=== PATIENT | male | born 1995 | race Caucasian/White ===

== ENCOUNTER 2024-01-11 20:45 | Emergency (ER) | payer MEDICAID, OTHER ==
[~2024-01-11] VITALS: Ht 182.9 cm; Wt 72.5 kg
[2024-01-11] MEDS: IBUPROFEN 600MG TAB PO ONE (23:03)
[2024-01-11] MEDS ORDERED: METH-1164 PO (23:44)
[2024-01-11] MEDS ORDERED: IBUP-1022 PO (23:44)
[2024-01-11] MEDS ORDERED: methocarbamoL 500 MG TAB PO ONE (23:45)
[2024-01-11 23:50] VITALS: BP 109/68; TEMP 97.9; O2SAT 99
== END 2024-01-12 00:06 | disposition home or self-care (01) ==
LOC: M ED 20:45
DX: S29.011A Strain of muscle and tendon of front wall of thorax, initial encounter (principal); X50.0XXA Overexertion from strenuous movement or load, initial encounter; F17.200 Nicotine dependence, unspecified, uncomplicated; Y92.9 Unspecified place or not applicable; Y93.89 Activity, other specified; Y99.9 Unspecified external cause status; Z79.1 Long term (current) use of non-steroidal anti-inflammatories (NSAID); Z79.899 Other long term (current) drug therapy